=== PATIENT | female | born 1940 | race Caucasian/White ===

== ENCOUNTER 2016-10-20 22:01 | Emergency (ER) | payer MEDICARE, BC ==
[2016-10-20] MEDS ORDERED: Metoprolol Tartrate 50 MG Tab PO ONE (23:03)
[2016-10-20] MEDS ORDERED: LORazepam 0.5 MG Tab PO ONE (23:03)
[2016-10-20] MEDS ORDERED: Acetaminophen 325 MG Tab PO ONE (23:03)
[2016-10-20 23:19] VITALS: BP 153/59
--- NOTE | 2016-10-20 23:31 | EDM.PDOC ---
ED HPI ENT - General Chief Complaint: ENT Problem Stated Complaint: RIGHT EAR HURTS Time Seen by Provider: 10/20/16 22:32 Source of Information: Reports: Patient, Family (spouse), RN notes reviewed - History of Present Illness INITIAL COMMENTS - FREE TEXT/NARRATIVE: 75-year-old female comes in with throbbing right ear discomfort. This started several hours ago. She checked her blood pressure at home was very high around 200 for systolic. She states that she can feel "pounding in her right ear". No nausea or vomiting with this. No visual disturbance. She does have history of hypertension on multiple meds for that. She does take those meds in the morning which would have been many hours ago. She has not been ill recently with nasal or sinus congestion. She denies sore throat fever chills or cough. - Related Data Allergies/ADRs: Allergies Allergy/AdvReac Type Severity Reaction Status Date / Time No Known Allergies Allergy Verified 07/28/14 22:03 Home Meds: Home Meds Fluticasone/Salmeterol [Advair 250-50] 1 puff INH BEDTIME 07/28/14 [History] Metoprolol Succinate [Toprol Xl] 100 mg PO DAILY 07/28/14 [History] Pravastatin [Pravachol] 80 mg PO DAILY 07/28/14 [History] Ramipril [Altace] 10 mg PO BID 07/28/14 [History] amLODIPine [Norvasc] 10 mg PO DAILY 07/28/14 [History] Hydrochlorothiazide 12.5 mg PO DAILY 10/20/16 [History] Omeprazole 20 mg PO DAILY 10/20/16 [History] metroNIDAZOLE [Flagyl] 500 mg PO Q12H 10/20/16 [History] Past Medical History - Past Health History Medical/Surgical History: Denies Medical/Surgical History HEENT History: Reports: Impaired vision Cardiovascular History: Reports: Arrhythmia, High cholesterol, Hypertension Respiratory History: Reports: Asthma Gastrointestinal History: Reports: Diverticulosis, GERD Genitourinary History: Reports: UTI, recurrent 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 Denies: Eye pain, Sinus problem, Throat pain, Vision change Respiratory: Denies: Shortness of Breath, Wheezing, Pleuritic Chest Pain Cardiovascular: Denies: Chest pain GI/Abdominal: Denies: Abdominal pain, Nausea, Vomiting Musculoskeletal: Denies: neck pain, shoulder pain, arm pain, back pain, joint pain Skin: Reports: no symptoms Neurological: Denies: Numbness, Tingling, Trouble Speaking, Difficulty Walking, Weakness, Change in Speech ED EXAM, ENT - Physical Exam Exam: See Below General Appearance: alert, no apparent distress Eye Exam: bilateral eye: EOMI, PERRL Ears: normal external exam, normal canal, normal TMs Nose: normal inspection Mouth/Throat: Normal inspection Head: atraumatic. No: scalp tenderness, facial ecchymosis, facial swelling, facial tenderness Neck: supple, full range of motion. No: lymphadenopathy (L), lymphadenopathy (R ) Respiratory/Chest: no respiratory distress, lungs clear, normal breath sounds Cardiovascular: regular rate, rhythm GI/Abdominal: soft, non tender Back: normal inspection Extremities: normal inspection. No: pedal edema, leg pain Neurological: alert, oriented, no motor/sensory deficits, other (finger to nose testing normal) Course - Vital Signs Last Recorded V/S: Last Vital Signs Temp 97.7 F 10/20/16 22:23 Pulse 63 10/20/16 23:17 Resp 18 10/20/16 22:23 BP 153/59 H 10/20/16 23:17 Pulse Ox 99 10/20/16 22:23 - Orders/Labs/Meds Meds: Medications Discontinued Medications Generic Name Dose Route Start Last Admin Trade Name Ramiro PRN Reason Stop Dose Admin Acetaminophen 975 mg 10/20/16 23:03 10/20/16 23:18 Tylenol PO 10/20/16 23:04 975 mg NOW ONE Administration Lorazepam 0.5 mg 10/20/16 23:03 10/20/16 23:17 Ativan PO 10/20/16 23:04 0.5 mg ONETIME ONE Administration Metoprolol Tartrate 50 mg 10/20/16 23:03 10/20/16 23:17 Lopressor PO 10/20/16 23:04 50 mg ONETIME ONE Administration - Re-Assessments/Exams Free Text/Narrative Re-Assessment/Exam: 10/21/16 04:55 we gave metoprolol 50 mg by mouth, Tylenol 975 by mouth, Ativan 0.5 mg by mouth. With that her blood pressure did come down. She is feeling better at time of discharge. her right auditory canal was cleared, TM was normal. He has not had ear infection at this time. I did discuss option of head CT with patient and her this evening. With her blood pressure and symptoms improving there does not appear to urgent need for that at this time. That can always be done at a later date if indicated. Discharge instructions as documented. Departure - Departure Time of Disposition: 23:28 Disposition: Home, Self-Care 01 Condition: fair Clinical Impression: Hypertension Qualifiers: Hypertension type: essential hypertension Qualified Code(s): I10 - Essential ( primary) hypertension Instructions: Hypertension, [id number] Referrals: Erich Wright MD [Primary Care Provider] - Forms: ED Department Discharge Additional Instructions: continue current medications, rest, you have been given Tylenol, an extra 50 mg metoprolol and also Ativan or lorazepam 0.5 mg this evening to help your blood pressure, R ear discomfort and to help you rest and relax. if you have any home blood pressure monitor take that once or twice a day to check a number of readings over the next several days to see what your blood pressure is running on average, call or see Dr. Wright as needed, return to ED as needed
== END 2016-10-20 23:40 | disposition home or self-care (01) ==
LOC: JD.ED 22:01
DX: I10 Essential (primary) hypertension (principal); E78.00 Pure hypercholesterolemia, unspecified; J45.909 Unspecified asthma, uncomplicated; K21.9 Gastro-esophageal reflux disease without esophagitis; Z98.890 Other specified postprocedural states; Z90.710 Acquired absence of both cervix and uterus; Z79.899 Other long term (current) drug therapy
CPT/HCPCS: 99283; A9270

== ENCOUNTER 2017-06-12 16:36 | Emergency (ER) | payer MEDICARE, BC ==
[2017-06-12 16:43] VITALS: BP 166/70
--- NOTE | 2017-06-12 17:03 | EDM.PDOC ---
ED HPI GENERAL MEDICAL PROBLEM - General Chief Complaint: Chest Pain Stated Complaint: CHEST PAIN Time Seen by Provider: 06/12/17 17:01 Source of Information: Reports: Patient - History of Present Illness INITIAL COMMENTS - FREE TEXT/NARRATIVE: Patient is here today for evaluation for right upper chest pain. She states that she has had this intermittently over the past week or so. She states that when it occurs it lasts just a few seconds to a few minutes. She denies any shortness of breath or nausea when this occurs. Patient has no history of heart disease. She had a normal stress test in August 2015. She does have a known heart murmur. She does have a history of heartburn/reflux and is on omeprazole daily for this. She states that she has been belching more recently but hasn't really had any heartburn or reflux. She denies any nausea or vomiting. Patient states she has not been any more physical active recently than she usually is. She has not lifted anything heavy or done any unusual twisting motions. Patient denies any current pain. 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 (see below) Other Treatments CAPTAIN WAITER: asa 81 mg last evening Right Chest Pain Score (Numeric/FACES): 5 - Related Data Allergies Allergy/AdvReac Type Severity Reaction Status Date / Time No Known Allergies Allergy Verified 07/28/14 22:03 Home Meds: Home Meds Fluticasone/Salmeterol [Advair 250-50] 1 puff INH BEDTIME 07/28/14 [History] Metoprolol Succinate [Toprol Xl] 100 mg PO DAILY 07/28/14 [History] Pravastatin [Pravachol] 80 mg PO DAILY 07/28/14 [History] Ramipril [Altace] 10 mg PO DAILY 07/28/14 [History] amLODIPine [Norvasc] 10 mg PO DAILY 07/28/14 [History] Hydrochlorothiazide 12.5 mg PO DAILY 10/20/16 [History] Omeprazole 20 mg PO DAILY 10/20/16 [History] Aspirin [Halfprin] 81 mg PO DAILY 06/12/17 [History] Past Medical History - Past Health History Medical/Surgical History: Denies Medical/Surgical History HEENT History: Reports: Impaired Vision Cardiovascular History: Reports: Arrhythmia, High Cholesterol, Hypertension Respiratory History: Reports: Asthma Gastrointestinal History: Reports: Diverticulosis, GERD Genitourinary History: Reports: UTI, Recurrent 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 Denies: Blood Pressure Problem, Dyspnea on Exertion, Edema, Lightheadedness, Syncope Endocrine: Reports: No Symptoms GI/Abdominal: Denies: Abdominal Pain, Black Stool, Bloody Stool, Constipation, Diarrhea, Decreased Appetite, Nausea, Vomiting : Reports: No Symptoms Musculoskeletal: Reports: No Symptoms Skin: Reports: No Symptoms Neurological: Reports: No Symptoms ED EXAM, GENERAL - Physical Exam Exam: See Below Exam Limited By: No Limitations General Appearance: Alert, WD/WN, No Apparent Distress Nose: Normal Inspection, Normal Mucosa Throat/Mouth: Normal Inspection, Normal Lips, Normal Oropharynx Head: Atraumatic, Normocephalic Neck: Normal Inspection Respiratory/Chest: No Respiratory Distress, Lungs Clear, Normal Breath Sounds, No Accessory Muscle Use Cardiovascular: Normal Peripheral Pulses, Regular Rate, Rhythm, Systolic Murmur (II/) GI/Abdominal: Normal Bowel Sounds, Soft, Non-Tender Neurological: Alert, Oriented Psychiatric: Normal Affect, Normal Mood Skin Exam: Warm, Dry, Intact EKG INTERPRETATION EKG Date: 06/12/17 Time: 16:48 Rhythm: NSR Rate (Beats/Min): 64 Comparison: No Change EKG Interpretation Comments: EKG reviewed with Dr Jensen. Demonstrates LBBB, similar to previous EKGs last one 09/26/2014. Course - Vital Signs Last Recorded V/S: Last Vital Signs Temp 97.3 F 06/12/17 16:40 Pulse 75 06/12/17 16:40 Resp 20 06/12/17 16:40 BP 166/70 H 06/12/17 16:40 Pulse Ox 98 06/12/17 16:40 - Orders/Labs/Meds Labs: Laboratory Tests 06/12/17 06/12/17 Range/Units 17:12 17:12 WBC 7.93 (3.98-10.04) K/mm3 RBC 4.23 (3.98-5.22) M/mm3 Hgb 13.1 (11.2-15.7) gm/L Hct 39.3 (34.1-44.9) % MCV 92.9 (79.4-94.8) fl MCH 31.0 (25.6-32.2) pg MCHC 33.3 (32.2-35.5) g/dl RDW Std Deviation 42.9 (36.4-46.3) fL Plt Count 231 (182-369) K/mm3 MPV 10.0 (9.4-12.3) fl Neutrophils % (Manual) 60 (40-60) % Band Neutrophils % 0 (0-10) % Lymphocytes % (Manual) 35 (20-40) % Atypical Lymphs % 0 % Monocytes % (Manual) 2 (2-10) % Eosinophils % (Manual) 1 (0.7-5.8) % Basophils % (Manual) 2 H (0.1-1.2) Platelet Estimate Adequate RBC Morph Comment Normal Sodium 142 (136-145) mEq/L Potassium 4.0 (3.5-5.1) mEq/L Chloride 103 (98-107) mEq/L Carbon Dioxide 30 (21-32) mEq/L Anion Gap 13.0 (5-15) BUN 25 H (7-18) mg/dL Creatinine 1.0 (0.55-1.02) mg/dL Est Cr Clr Drug Dosing 38.44 mL/min Estimated GFR (MDRD) 54 (>60) mL/min BUN/Creatinine Ratio 25.0 H (14-18) Glucose 96 (83-115) mg/dL Calcium 10.2 H (8.5-10.1) mg/dL Total Bilirubin 0.3 (0.2-1.0) mg/dL AST 21 (15-37) U/L ALT 27 (14-59) U/L Alkaline Phosphatase 64 (46-116) U/L Troponin I < 0.017 (0.00-0.056) ng/mL C-Reactive Protein < 0.2 (<1.0) mg/dL Total Protein 7.4 (6.4-8.2) g/dl Albumin 3.9 (3.4-5.0) g/dl Globulin 3.5 gm/dL Albumin/Globulin Ratio 1.1 (1-2) Meds: Medications Discontinued Medications Generic Name Dose Route Start Last Admin Trade Name Ramiro PRN Reason Stop Dose Admin Ketorolac Tromethamine 60 mg 06/12/17 17:41 06/12/17 17:48 Toradol IM 06/12/17 17:42 60 mg ONETIME ONE Administration - Re-Assessments/Exams Free Text/Narrative Re-Assessment/Exam: Lab work is normal, troponin is negative. EKG is same as previous. Chest pain is less likely musculoskeletal especially since pain can be reproduced with pressure. Patient had significant improvement in pain with Toradol injection. Discussed treatment of pain with NSAIDs, recommend she take these with food if needed. She could also try something like topical Biofreeze as this might help as well. Patient is to follow-up with her PCP next week or certainly return to ER if needed. 06/12/17 19:15 Departure - Departure Time of Disposition: 18:40 Disposition: Home, Self-Care 01 Condition: Good Clinical Impression: Musculoskeletal chest pain, Non-cardiac chest pain Instructions: Nonspecific Chest Pain Referrals: Erich Wright MD [Primary Care Provider] - Forms: ED Department Discharge Additional Instructions: Rest, activity as tolerated You may try Tylenol as needed for the pain, ibuprofen if needed but take with food as this may upset your stomach. You also could try topical such as Biofreeze. Follow-up with PCP next week or certainly return to ER if needed.
[2017-06-12] MEDS ORDERED: Ketorolac 60 MG/2 ML SDV IM ONE (17:41)
== END 2017-06-12 18:18 | disposition home or self-care (01) ==
LOC: JD.ED 16:36 → SUPCPDRO 16:36 → JD.ED 18:18
DX: R07.89 Other chest pain (principal); I10 Essential (primary) hypertension; Z79.899 Other long term (current) drug therapy; Z79.82 Long term (current) use of aspirin
CPT/HCPCS: 36415; 80053; 84484; 85025; 86140; 96372; 99284; J1885

== ENCOUNTER 2018-05-13 19:34 | Emergency (ER) | payer MEDICARE, BC ==
[2018-05-13 19:51] VITALS: BP 158/83
[2018-05-13] MEDS ORDERED: Sodium Chloride 0.9% 1,000 ML IV ONE (20:01)
[2018-05-13] MEDS ORDERED: Ondansetron 4 MG/2 ML SDV IVPUSH ONE (20:01)
[2018-05-13] MEDS ORDERED: Dicyclomine 20 MG/2 ML SDV IM ONE (20:05)
--- NOTE | 2018-05-13 20:10 | EDM.PDOC ---
ED HPI GENERAL MEDICAL PROBLEM - General Chief Complaint: General Stated Complaint: WEAK DIARRHEA ARM AND LEG PAIN Time Seen by Provider: 05/13/18 19:53 - History of Present Illness INITIAL COMMENTS - FREE TEXT/NARRATIVE: Patient is 77-year-old female, accompanied by her presented related to the emergency department for an evaluation of multiple episode of loose stools and vomiting after drinking vegetable soup few hours ago. She stated that she has been having at least 4-5 loose liquid stool without any blood and one or 2 episode of vomitus since drank that soup. She denies any chest pain, shortness of breath, abdominal pain associated with diarrhea and vomiting episodes. However she complains of cramping in her legs and arms. She denies any fever or chills, or back pain. She denies any recent traveling or sick contacts. Denies any other concern at this time. Of note, her at bedside also stated that he had similar soup which he also had 2-3 loose bowel movements But no episode of vomiting. 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 (see below) Other Treatments BALANCE WHEEL FACER: had baby aspirin this evening about 1600 - Related Data Allergies Allergy/AdvReac Type Severity Reaction Status Date / Time No Known Allergies Allergy Verified 07/28/14 22:03 Home Meds: Home Meds Fluticasone/Salmeterol [Advair 250-50] 1 puff INH BEDTIME 07/28/14 [History] Metoprolol Succinate [Toprol Xl] 100 mg PO DAILY 07/28/14 [History] Pravastatin [Pravachol] 80 mg PO DAILY 07/28/14 [History] Ramipril [Altace] 10 mg PO DAILY 07/28/14 [History] amLODIPine [Norvasc] 10 mg PO DAILY 07/28/14 [History] Omeprazole 20 mg PO DAILY 10/20/16 [History] hydroCHLOROthiazide [Hydrochlorothiazide] 12.5 mg PO DAILY 10/20/16 [History] Aspirin [Halfprin] 81 mg PO DAILY 06/12/17 [History] Dicyclomine [Bentyl] 20 mg PO TID 5 Days #15 tab 05/13/18 [Rx] Ondansetron [Zofran ODT] 4 mg PO Q8H PRN #15 tab.dis 05/13/18 [Rx] Past Medical History - Past Health History Medical/Surgical History: Denies Medical/Surgical History HEENT History: Reports: Impaired Vision Cardiovascular History: Reports: Arrhythmia, High Cholesterol, Hypertension Respiratory History: Reports: Asthma Gastrointestinal History: Reports: Diverticulosis, GERD Genitourinary History: Reports: UTI, Recurrent 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 ED EXAM, GENERAL - Physical Exam Exam: See Below Exam Limited By: No Limitations General Appearance: Alert, WD/WN, No Apparent Distress Eye Exam: Bilateral Eye: EOMI, Normal Inspection, PERRL Throat/Mouth: Normal Inspection, Normal Lips, Normal Oropharynx, Normal Voice, No Airway Compromise Head: Atraumatic, Normocephalic Neck: Normal Inspection, Supple, Full Range of Motion Respiratory/Chest: No Respiratory Distress, Lungs Clear, Normal Breath Sounds Cardiovascular: Normal Peripheral Pulses, Regular Rate, Rhythm, No Edema GI/Abdominal: Normal Bowel Sounds, Soft, Non-Tender, No Organomegaly, No Distention (Female) Exam: Deferred Rectal (Female) Exam: Deferred Back Exam: Normal Inspection, Full Range of Motion, NT Extremities: Normal Inspection, Normal Range of Motion, Non-Tender, Normal Capillary Refill, No Pedal Edema Neurological: Alert, Oriented, No Motor/Sensory Deficits Psychiatric: Normal Affect, Normal Mood Skin Exam: Warm, Dry, Intact, Normal Color, No Rash EKG INTERPRETATION EKG Date: 05/13/18 Time: 19:53 Rhythm: NSR [place]: Normal P-Wave: Present QRS: LBBB ST-T: Normal QT: Normal Course - Vital Signs Last Recorded V/S: Last Vital Signs Temp 36.6 C 05/13/18 19:49 Pulse 70 05/13/18 19:49 Resp 20 05/13/18 19:49 BP 158/83 H 05/13/18 19:49 Pulse Ox - Orders/Labs/Meds Orders: Active Orders 24 hr Category Date Time Status EKG 12 Lead [EKG Documentation Completion] [RC] STAT Care 05/13/18 19:50 Active Labs: Laboratory Tests 05/13/18 05/13/18 05/13/18 Range/Units 20:15 20:15 20:20 WBC 9.19 (3.98-10.04) K/mm3 RBC 4.45 (3.98-5.22) M/mm3 Hgb 13.5 (11.2-15.7) gm/L Hct 41.5 (34.1-44.9) % MCV 93.3 (79.4-94.8) fl MCH 30.3 (25.6-32.2) pg MCHC 32.5 (32.2-35.5) g/dl RDW Std Deviation 42.9 (36.4-46.3) fL Plt Count 235 (182-369) K/mm3 MPV 9.9 (9.4-12.3) fl Neut % (Auto) 70.0 (34.0-71.1) % Lymph % (Auto) 21.0 (19.3-51.7) % [place] % (Auto) 6.9 (4.7-12.5) % Eos % (Auto) 1.8 (0.7-5.8) Baso % (Auto) 0.2 (0.1-1.2) % Neut # (Auto) 6.43 H (1.56-6.13) K/mm3 Lymph # (Auto) 1.93 (1.18-3.74) K/mm3 [place] # (Auto) 0.63 H (0.24-0.36) K/mm3 Eos # (Auto) 0.17 (0.04-0.36) K/mm3 Baso # (Auto) 0.02 (0.01-0.08) K/mm3 Sodium 137 (136-145) mEq/L Potassium 4.0 (3.5-5.1) mEq/L Chloride 101 (98-107) mEq/L Carbon Dioxide 29 (21-32) mEq/L Anion Gap 11.0 (5-15) BUN 18 (7-18) mg/dL Creatinine 1.3 H (0.55-1.02) mg/dL Est Cr Clr Drug Dosing 29.12 mL/min Estimated GFR (MDRD) 40 (>60) mL/min BUN/Creatinine Ratio 13.8 L (14-18) Glucose 165 H (83-115) mg/dL Calcium 8.9 (8.5-10.1) mg/dL Magnesium 1.8 (1.8-2.4) mg/dl Total Bilirubin 0.2 (0.2-1.0) mg/dL AST 19 (15-37) U/L ALT 28 (14-59) U/L Alkaline Phosphatase 71 (46-116) U/L Total Protein 7.4 (6.4-8.2) g/dl Albumin 3.8 (3.4-5.0) g/dl Globulin 3.6 gm/dL Albumin/Globulin Ratio 1.1 (1-2) Lipase 207 (73-393) U/L Urine Color Yellow (Yellow) Urine Appearance Clear (Clear) Urine pH 7.0 (5.0-8.0) Ur Specific [place] 1.020 (1.005-1.030) Urine Protein Negative (Negative) Urine Glucose (UA) Negative (Negative) Urine Ketones Negative (Negative) Urine Occult Blood Negative (Negative) Urine Nitrite Negative (Negative) Urine Bilirubin Negative (Negative) Urine Urobilinogen 0.2 (0.2-1.0) Ur Leukocyte Esterase 1+ H (Negative) Urine RBC 0-5 (0-5) /hpf Urine WBC 10-20 H (0-5) /hpf Ur Epithelial Cells 40-50 H (0-5) /hpf Urine Bacteria Rare (FEW) /hpf Urine Mucus Not seen (FEW) /hpf Meds: Medications Discontinued Medications Generic Name Dose Route Start Last Admin Trade Name Freq PRN Reason Stop Dose Admin Dicyclomine HCl 20 mg 05/13/18 20:05 05/13/18 20:25 Bentyl IM 05/13/18 20:06 20 mg ONETIME ONE Administration Sodium Chloride 1,000 mls @ 999 mls/hr 05/13/18 20:01 05/13/18 20:12 Normal Saline IV 05/13/18 21:01 999 mls/hr ONETIME ONE Administration Promethazine HCl 12.5 mg/ 50.5 mls @ 100 mls/hr 05/13/18 21:14 05/13/18 21:21 Sodium Chloride IV 05/13/18 21:44 100 mls/hr ONETIME ONE Administration Ondansetron HCl 4 mg 05/13/18 20:01 05/13/18 20:12 Zofran IVPUSH 05/13/18 20:02 4 mg ONETIME ONE Administration - Re-Assessments/Exams Free Text/Narrative Re-Assessment/Exam: 05/13/18 21:55 At this time, patient reevaluated at bedside. Symptoms improving and progressing as expected. Patient alert and awake, afebrile with normal vital signs. Tolerating PO, abdomen soft and nontender to palpation. Results were reviewed and discussed with patient and available family member at bedside. Questions were solicited and answered. No evidence of severe dehydration, sepsis, or other surgical process. Patient appropriate for discharge. Patient and family both agrees with the discharge plan. Warning signs reviewed. Strong return precautions given for worsening symptoms or any other alarming symptoms such as persistent abdominal pain, flank pain, vomiting, fever greater than 100.4F, hematuria, urinary frequency, urgency, dysuria, persistent low back pain. At the time of discharge patient was alert and oriented 4, was in no acute distress. Ambulated on her own accord, and moving all 4 extremities voluntarily. Patient has been recommended to follow up with their established and/or referral primary care provider as soon as possible for further follow-up ED visit. Patient was informed discharge medications and counseled regarding use of medications Departure - Departure Time of Disposition: 22:17 Disposition: Home, Self-Care 01 Condition: Good Clinical Impression: Nausea vomiting and diarrhea - Discharge Information *PRESCRIPTION DRUG MONITORING PROGRAM REVIEWED*: Not Applicable *COPY OF PRESCRIPTION DRUG MONITORING REPORT IN PATIENT MISHEL: Not Applicable Prescriptions: Dicyclomine [Bentyl] 20 mg PO TID 5 Days #15 tab Ondansetron [Zofran ODT] 4 mg PO Q8H PRN #15 tab.dis PRN Reason: Nausea/Vomiting Instructions: Nausea and Vomiting, Adult, Diarrhea, Adult, [id number] Referrals: Erich Wright MD [Primary Care Provider] - 3 Days (Please call your primary care provider to reevaluate your symptoms of today emergency visit) Forms: ED Department Discharge
[2018-05-13] MEDS ORDERED: Promethazine 12.5 MG in Sodium Chloride 0.9% 50 ML IV ONE (21:14)
== END 2018-05-13 22:33 | disposition home or self-care (01) ==
LOC: JD.ED 19:34
DX: R11.2 Nausea with vomiting, unspecified (principal); R19.7 Diarrhea, unspecified; E78.00 Pure hypercholesterolemia, unspecified; I10 Essential (primary) hypertension; J45.909 Unspecified asthma, uncomplicated; Z79.82 Long term (current) use of aspirin; Z79.899 Other long term (current) drug therapy
CPT/HCPCS: 36415; 80053; 81001; 83690; 83735; 85025; 93005; 96361; 96365; 96372; 96375; 99285; J0500; J2405; J2550; J7040; J7050; 99284

== ENCOUNTER 2018-05-14 06:37 | Emergency (ER) | payer MEDICARE, BC ==
[2018-05-14 07:00] VITALS: BP 175/67
--- NOTE | 2018-05-14 07:34 | EDM.PDOC ---
ED HPI GENERAL MEDICAL PROBLEM - General Chief Complaint: Abdominal Pain Stated Complaint: BLOOD IN STOOL Time Seen by Provider: 05/14/18 06:54 Source of Information: Reports: Patient, Family (), Old Records (ED 2017), RN Notes Reviewed History Limitations: Reports: No Limitations - History of Present Illness INITIAL COMMENTS - FREE TEXT/NARRATIVE: Medical records indicate that the patient was seen in this ED last night, with a complaint of 2 episodes of vomiting and multiple episodes of loose stools without blood for a few hours at that time. She also complained of cramping in her legs and arms. Workup included a CBC, CMP, magnesium level, lipase level, and urinalysis. Her workup was unremarkable. She was given IV fluid, Bentyl, promethazine, and Zofran. Her symptoms improved, and she was discharged home with prescriptions for Bentyl and Zofran. The patient now returns to the ED stating that he developed bloody diarrhea around midnight, and that she had abdominal cramps all night. No other new symptoms. No recent fever. She did not get to fill the prescriptions for Bentyl and Zofran. The patient's reported that he had had some loose bowel movements yesterday, as well, but the patient does not know of any other similarly ill close contacts. No known bad or spoiled food. No recent antibiotics. No recent travel. The patient's PCP is Dr. Wright. Abdominal Pain Score (Numeric/FACES): 3 - Related Data Allergies Allergy/AdvReac Type Severity Reaction Status Date / Time No Known Allergies Allergy Verified 05/14/18 06:55 Home Meds: Home Meds Fluticasone/Salmeterol [Advair 250-50] 1 puff INH BEDTIME 07/28/14 [History] Metoprolol Succinate [Toprol Xl] 100 mg PO DAILY 07/28/14 [History] Pravastatin [Pravachol] 80 mg PO DAILY 07/28/14 [History] Ramipril [Altace] 10 mg PO DAILY 07/28/14 [History] amLODIPine [Norvasc] 10 mg PO DAILY 07/28/14 [History] Omeprazole 20 mg PO DAILY 10/20/16 [History] hydroCHLOROthiazide [Hydrochlorothiazide] 12.5 mg PO DAILY 10/20/16 [History] Aspirin [Halfprin] 81 mg PO DAILY 06/12/17 [History] Dicyclomine [Bentyl] 20 mg PO TID 5 Days #15 tab 05/13/18 [Rx] Ondansetron [Zofran ODT] 4 mg PO Q8H PRN #15 tab.dis 05/13/18 [Rx] metroNIDAZOLE [Flagyl] 1 tab PO Q8H #30 tab 05/14/18 [Rx] Past Medical History HEENT History: Reports: Impaired Vision Cardiovascular History: Reports: Arrhythmia, High Cholesterol, Hypertension Respiratory History: Reports: Asthma (suspected, not confirmed) Gastrointestinal History: Reports: Diverticulosis, GERD - Past Surgical History HEENT Surgical History: Reports: Tonsillectomy GI Surgical History: Reports: Appendectomy, Colonoscopy Female Surgical History: Reports: D&C (x 4 or 5), Hysterectomy, Salpingo- Oophorectomy Social & Family History - Family History Family Medical History: Noncontributory - Tobacco Use Smoking Status *Q: Never Smoker - Caffeine Use Caffeine Use: Reports: Coffee - Alcohol Use Alcohol Use History: Yes Alcohol Use Frequency: Rarely - Recreational Drug Use Recreational Drug Use: No - Living Situation & Occupation Living situation: Reports: , with Spouse Occupation: Retired ED ROS GENERAL - Review of Systems Review Of Systems: ROS reveals no pertinent complaints other than HPI. ED EXAM, GI/ABD - Physical Exam Exam: See Below Exam Limited By: No Limitations General Appearance: Alert, WD/WN, No Apparent Distress Eyes: Bilateral: Normal Appearance, EOMI Ears: Normal External Exam, Hearing Grossly Normal Nose: Normal Inspection Throat/Mouth: Normal Inspection, Normal Lips, Normal Voice, No Airway Compromise Head: Atraumatic, Normocephalic Neck: Normal Inspection, Full Range of Motion Respiratory/Chest: No Respiratory Distress, Lungs Clear, Normal Breath Sounds, No Accessory Muscle Use Cardiovascular: Normal Peripheral Pulses, Regular Rate, Rhythm, No Gallop, No JVD, No Murmur, No Rub GI/Abdominal Exam: Normal Bowel Sounds, Soft, Non-Tender, No Organomegaly, No Distention, No Abnormal Bruit, No Mass, Pelvis Stable (Female) Exam: Deferred Rectal (Female) Exam: Normal Rectal Tone, Bloody Stool (thin red), Heme + Stool , Hemorrhoids (external, non-thrombosed, non-tender) Back Exam: Normal Inspection, Full Range of Motion, NT Extremities: Normal Inspection, Normal Range of Motion, No Pedal Edema, Normal Capillary Refill Neurological: Alert, Oriented, Normal Cognition, No Motor/Sensory Deficits Psychiatric: Normal Affect Skin Exam: Warm, Dry, Intact, Normal Color, No Rash Course - Vital Signs Last Recorded V/S: Last Vital Signs Temp 36.9 C 05/14/18 06:55 Pulse 81 05/14/18 06:55 Resp 18 05/14/18 06:55 BP 175/67 H 05/14/18 06:55 Pulse Ox 100 05/14/18 06:55 - Orders/Labs/Meds Orders: Active Orders 24 hr Category Date Time Status CULTURE STOOL + SHIGATOX [RM] Stat Lab 05/14/18 07:39 Received NOROVIRUS, RT-PCR Stat Lab 05/14/18 07:29 Ordered Labs: Laboratory Tests 05/14/18 Range/Units 07:29 C.difficile [id number] Presumptive negative C. difficile Tox (PCR) Positive H - Re-Assessments/Exams Free Text/Narrative Re-Assessment/Exam: 05/14/18 07:30 The only thing that has changed since last evening is that the patient has some blood in her diarrhea. Her physical exam, including her abdominal exam, is grossly benign. She is heme positive on rectal exam, however, the blood is relatively thin. I don't see an indication to repeat the extensive workup that she had last night. The only thing that I would add is to send stool studies to see if an organism returns that would require treatment. The patient has not yet filled her prescriptions for Bentyl and Zofran, but can do so at 9:00 this morning. The patient is satisfied with this approach. I have therefore ordered a number of stool studies. The patient may go home, and we can contact her if something significant results. 05/14/18 09:30 Notified by Di CABEZAS that the patient's stool C. difficile toxin by PCR has returned positive. Current guidelines have changed. Previously, initial treatment was a 10-day course of Flagyl, however, current guidelines now recommend a 10-day course of oral vancomycin. I contacted the patient by telephone at 09:21. 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 I have sent a prescription for vancomycin 125 mg po Q 6h #40. I explained to the patient the necessity for her to complete the 10-day course, even if her diarrhea resolves, and have her follow-up with her PCP in 10 days if her diarrhea does not resolve. 05/14/18 11:49 Notified that the patient's insurance requires a $500 co-pay for the oral vancomycin, and the patient cannot afford it. We called [facility] to see if they carry fidaxomicin, an alternate agent with equivalent efficacy, but they do not. The patient informed the nurse that she would not be able to fill the prescription. It is unclear what prompted the change in guidelines; previously, metronidazole and oral vancomycin were equally efficacious, but vancomycin was much more expensive, therefore the recommendations were for a 10-day course of metronidazole, and if ineffective in eradicating the C. difficile, then a second 10-day course of metronidazole, and, if still ineffective in eradicating the C. difficile, then a 10-day course of oral vancomycin. Since oral vancomycin is still exorbitantly expensive, it would appear that the reason for the change in guidelines is due to efficacy - that C. difficile resistance to metronidazole may be developing. While it is unethical to prescribe an ineffective agent based on cost, I would prefer to see the patient on metronidazole, even if less efficacious, than nothing at all. I have therefore sent in a Rx for metronidazole 500 mg, 1 tab po Q8h #30. Departure - Departure Time of Disposition: 07:32 Disposition: Home, Self-Care 01 Condition: Fair Clinical Impression: Gastroenteritis, Lower GI bleed - Discharge Information *PRESCRIPTION DRUG MONITORING PROGRAM REVIEWED*: Not Applicable *COPY OF PRESCRIPTION DRUG MONITORING REPORT IN PATIENT MISHEL: Not Applicable Prescriptions: metroNIDAZOLE [Flagyl] 1 tab PO Q8H #30 tab Instructions: Viral Gastroenteritis, Adult, [id number], Lower Gastrointestinal Bleeding Referrals: Erich Wright MD [Primary Care Provider] - Forms: ED Department Discharge Additional Instructions: You were seen in the emergency room for vomiting, diarrhea, and, since midnight , blood in your diarrhea. Based on your history and physical examination, the only thing that was recommended on today's visit was to send stool studies. You will be notified if an organism is found that requires treatment, such as an antibiotic. Fill your prescriptions for Bentyl and Zofran at the [facility] pharmacy between 9:00 am and noon today. Stay adequately hydrated. Follow-up with your PCP, Dr. Wright, this week. If any other problems, please do not hesitate to return to the ER. - My Orders Last 24 Hours: My Active Orders 05/14/18 07:29 NOROVIRUS, RT-PCR Stat 05/14/18 07:39 CULTURE STOOL + SHIGATOX [RM] Stat - Assessment/Plan Last 24 Hours: My Active Orders 05/14/18 07:29 NOROVIRUS, RT-PCR Stat 05/14/18 07:39 CULTURE STOOL + SHIGATOX [RM] Stat
== END 2018-05-14 07:50 | disposition home or self-care (01) ==
LOC: JD.ED 06:37
DX: K52.9 Noninfective gastroenteritis and colitis, unspecified (principal); K92.2 Gastrointestinal hemorrhage, unspecified; I10 Essential (primary) hypertension; Z79.899 Other long term (current) drug therapy
CPT/HCPCS: 87046; 87425; 87427; 87493; 87798; 89055; 99284

== ENCOUNTER 2018-09-14 16:50 | Emergency (ER) | payer MEDICARE, BC ==
[2018-09-14] MEDS ORDERED: cloNIDine 0.1 MG Tab ONE (18:00)
[2018-09-14] MEDS ORDERED: Acetaminophen 325 MG Tab ONE (18:54)
[2018-09-14] MEDS ORDERED: Labetalol 100 MG/20 ML MDV ONE (18:54)
[2018-09-14 20:09] VITALS: BP 166/69
--- NOTE | 2018-09-15 08:17 | EDM.PDOC ---
ED HPI GENERAL MEDICAL PROBLEM - General Chief Complaint: Chest Pain Stated Complaint: CHEST PAIN Time Seen by Provider: 09/14/18 16:50 Source of Information: Reports: Patient, RN Notes Reviewed - History of Present Illness INITIAL COMMENTS - FREE TEXT/NARRATIVE: 77-year-old female comes in with brief episodes of chest discomfort yesterday and today associated with nonspecific dizziness and hypertension. Has been checking her blood pressure at home and this evening especially blood pressure readings have been much more elevated than usual. She has not been short of breath. No nausea vomiting or diaphoresis. Left Chest Pain Score (Numeric/FACES): 3 - Related Data Allergies Allergy/AdvReac Type Severity Reaction Status Date / Time No Known Allergies Allergy Verified 09/14/18 20:06 Home Meds: Home Meds Fluticasone/Salmeterol [Advair 250-50] 1 puff INH BEDTIME 07/28/14 [History] Metoprolol Succinate [Toprol Xl] 100 mg PO DAILY 07/28/14 [History] Pravastatin [Pravachol] 80 mg PO DAILY 07/28/14 [History] Ramipril [Altace] 10 mg PO DAILY 07/28/14 [History] amLODIPine [Norvasc] 5 mg PO DAILY 07/28/14 [History] Omeprazole 20 mg PO DAILY 10/20/16 [History] hydroCHLOROthiazide [Hydrochlorothiazide] 12.5 mg PO DAILY 10/20/16 [History] Aspirin [Halfprin] 81 mg PO DAILY 06/12/17 [History] Past Medical History - Past Health History Medical/Surgical History: Denies Medical/Surgical History HEENT History: Reports: Impaired Vision Cardiovascular History: Reports: Arrhythmia, High Cholesterol, Hypertension Respiratory History: Reports: Asthma Gastrointestinal History: Reports: Diverticulosis, GERD Genitourinary History: Reports: UTI, Recurrent 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 - Past Surgical History HEENT Surgical History: Reports: Tonsillectomy GI Surgical History: Reports: Appendectomy, Colonoscopy Female Surgical History: Reports: D&C, Hysterectomy, Salpingo-Oophorectomy Social & Family History - Family History Family Medical History: Noncontributory - Caffeine Use Caffeine Use: Reports: Coffee - Living Situation & Occupation Living situation: Reports: , with Spouse Occupation: Retired ED ROS GENERAL - Review of Systems Review Of Systems: See Below Constitutional: Denies: Fever, Chills, Diaphoresis HEENT: Denies: Throat Pain Respiratory: Denies: Shortness of Breath, Wheezing, Cough Cardiovascular: Reports: Chest Pain (brief episodes of twinges ant. chest yesterday and today) GI/Abdominal: Denies: Abdominal Pain, Nausea, Vomiting Musculoskeletal: Reports: No Symptoms. Denies: Neck Pain, Shoulder Pain, Arm Pain, Back Pain Skin: Reports: No Symptoms Neurological: Reports: Dizziness ED EXAM, GENERAL - Physical Exam Exam: See Below General Appearance: Alert, No Apparent Distress Throat/Mouth: Normal Inspection, Normal Oropharynx Head: Atraumatic. No: Facial Swelling Neck: Supple, Full Range of Motion Respiratory/Chest: No Respiratory Distress, Lungs Clear, Normal Breath Sounds Cardiovascular: Regular Rate, Rhythm GI/Abdominal: Soft, Non-Tender Back Exam: No: CVA Tenderness (L), CVA Tenderness (R) Extremities: Normal Inspection, Normal Range of Motion. No: Pedal Edema, Leg Pain, Increased Warmth, Redness Neurological: Alert, Oriented, No Motor/Sensory Deficits Skin Exam: Warm, Dry, Normal Color EKG INTERPRETATION EKG Date: 09/14/18 Rhythm: NSR [place]: Normal P-Wave: Present QRS: LBBB Course - Vital Signs Last Recorded V/S: Last Vital Signs Temp 97 F 09/14/18 19:35 Pulse 70 09/14/18 19:35 Resp 16 09/14/18 19:35 BP 166/69 H 09/14/18 19:35 Pulse Ox 98 09/14/18 19:35 - Orders/Labs/Meds Orders: Active Orders 24 hr Category Date Time Status Chest 1V Frontal [CR] Routine Exams 09/14/18 17:20 Taken Labs: Laboratory Tests 09/14/18 09/14/18 Range/Units 17:20 17:20 WBC 7.38 (3.98-10.04) K/mm3 RBC 4.53 (3.98-5.22) M/mm3 Hgb 14.0 (11.2-15.7) gm/L Hct 41.5 (34.1-44.9) % MCV 91.6 (79.4-94.8) fl MCH 30.9 (25.6-32.2) pg MCHC 33.7 (32.2-35.5) g/dl RDW Std Deviation 42.1 (36.4-46.3) fL Plt Count 256 (182-369) K/mm3 MPV 10.2 (9.4-12.3) fl Neutrophils % (Manual) 62 H (40-60) % Lymphocytes % (Manual) 31 (20-40) % Monocytes % (Manual) 5 (2-10) % Eosinophils % (Manual) 2 (0.7-5.8) % Platelet Estimate Adequate RBC Morph Comment Normal Sodium 142 (136-145) mEq/L Potassium 3.7 (3.5-5.1) mEq/L Chloride 103 (98-107) mEq/L Carbon Dioxide 29 (21-32) mEq/L Anion Gap 13.7 (5-15) BUN 17 (7-18) mg/dL Creatinine 0.9 (0.55-1.02) mg/dL Est Cr Clr Drug Dosing 42.06 mL/min Estimated GFR (MDRD) > 60 (>60) mL/min BUN/Creatinine Ratio 18.9 H (14-18) Glucose 101 (83-115) mg/dL Calcium 9.6 (8.5-10.1) mg/dL Total Bilirubin 0.3 (0.2-1.0) mg/dL AST 20 (15-37) U/L ALT 33 (14-59) U/L Alkaline Phosphatase 77 (46-116) U/L Troponin I < 0.017 (0.00-0.056) ng/mL Total Protein 7.8 (6.4-8.2) g/dl Albumin 4.1 (3.4-5.0) g/dl Globulin 3.7 gm/dL Albumin/Globulin Ratio 1.1 (1-2) Meds: Medications Discontinued Medications Generic Name Dose Route Start Last Admin Trade Name Freq PRN Reason Stop Dose Admin Acetaminophen Confirm 09/14/18 18:54 Tylenol Administered 09/14/18 18:55 Dose 650 mg .ROUTE .STK-MED ONE Clonidine HCl Confirm 09/14/18 18:00 Catapres Administered 09/14/18 18:01 Dose 0.1 mg .ROUTE .STK-MED ONE Labetalol HCl Confirm 09/14/18 18:54 Normodyne Administered 09/14/18 18:55 Dose 100 mg .ROUTE .STK-MED ONE - Re-Assessments/Exams Free Text/Narrative Re-Assessment/Exam: 09/15/18 08:16 labs including troponin are good, CXR nl, sats are good, BP quite high, did start trending down, had been given clonidine 0.1 mg by mouth, then started going back up toward 180-190 systolic. At that point given labetalol 20 IV which brought blood pressure down into the 150 range. No further discomfort while here in the ED. Discharge instructions as documented. Departure - Departure Time of Disposition: 19:10 Disposition: Home, Self-Care 01 Condition: Fair Clinical Impression: Atypical chest pain Hypertension Qualifiers: Hypertension type: essential hypertension Qualified Code(s): I10 - Essential ( primary) hypertension Forms: ED Department Discharge - My Orders Last 24 Hours: My Active Orders 09/14/18 17:20 Chest 1V Frontal [CR] Routine - Assessment/Plan Last 24 Hours: My Active Orders 09/14/18 17:20 Chest 1V Frontal [CR] Routine
--- NOTE | 2018-09-15 10:19 | CR ---
Chest: Portable view of the chest was obtained. Comparison: Prior chest x-ray of 07/05/18. Heart size appears within normal limits for portable technique. Mild tortuosity of the thoracic aorta is seen. Lungs are clear with no acute parenchymal change. Bony structures are grossly intact. Impression: 1. Nothing acute is appreciated on portable chest x-ray. Diagnostic code #1
== END 2018-09-14 19:35 | disposition home or self-care (01) ==
LOC: JD.ED 16:50
DX: R07.89 Other chest pain (principal); E78.00 Pure hypercholesterolemia, unspecified; I10 Essential (primary) hypertension; Z79.899 Other long term (current) drug therapy; Z79.82 Long term (current) use of aspirin
CPT/HCPCS: 36415; 71045; 71045-26; 80053; 84484; 85007; 85027; 96374; 99285-25

== ENCOUNTER 2018-09-16 18:15 | Emergency (ER) | payer MEDICARE, BC ==
[2018-09-16] MEDS ORDERED: hydrALAZINE 20 MG/ML SDV IVPUSH ONE (18:51)
--- NOTE | 2018-09-16 19:00 | EDM.PDOC ---
ED HPI GENERAL MEDICAL PROBLEM - General Chief Complaint: Neurological Problem Stated Complaint: HIGH BP Time Seen by Provider: 09/16/18 18:28 Source of Information: Reports: Patient, Old Records, RN Notes Reviewed History Limitations: Reports: No Limitations - History of Present Illness INITIAL COMMENTS - FREE TEXT/NARRATIVE: Patient is a 77 year old female who presents to the ED for the evaluation of high BP. She was seen in this ED on Wednesday night by Dr. Boudreaux and he increased her amlodipine dose to 10mg daily. He did give her 20mg IV labetalol in the ED and that helped with her BP at that visit. She returned to clinic today for a follow up appointment, and she was feeling fine then. She states that she had a headache last night and she checked her BP and it was 204/117. When she re-checked this AM it was in the 170s systolically. She did end up taking 200mg ibuprofen for a headache this morning. She states that she is a patient of Dr. Sanchez. She reports that she feels as if she might be having increased stress in her life due to a new medical diagnosis that her has that has made her worried. She denies chest pain, shortness of breath, blurred/double vision, tinnitus, fever/chills, or abdominal upset. Headache Pain Score (Numeric/FACES): 5 - Related Data Allergies Allergy/AdvReac Type Severity Reaction Status Date / Time No Known Allergies Allergy Verified 09/14/18 20:06 Home Meds: Home Meds Fluticasone/Salmeterol [Advair 250-50] 1 puff INH BEDTIME 07/28/14 [History] Metoprolol Succinate [Toprol Xl] 100 mg PO DAILY 07/28/14 [History] Pravastatin [Pravachol] 80 mg PO DAILY 07/28/14 [History] Ramipril [Altace] 10 mg PO DAILY 07/28/14 [History] amLODIPine [Norvasc] 5 mg PO DAILY 07/28/14 [History] Omeprazole 20 mg PO DAILY 10/20/16 [History] hydroCHLOROthiazide [Hydrochlorothiazide] 12.5 mg PO DAILY 10/20/16 [History] Aspirin [Halfprin] 81 mg PO DAILY 06/12/17 [History] Past Medical History - Past Health History Medical/Surgical History: Denies Medical/Surgical History HEENT History: Reports: Impaired Vision Cardiovascular History: Reports: Arrhythmia, High Cholesterol, Hypertension Respiratory History: Reports: Asthma Gastrointestinal History: Reports: Diverticulosis, GERD Genitourinary History: Reports: UTI, Recurrent 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 - Past Surgical History HEENT Surgical History: Reports: Tonsillectomy GI Surgical History: Reports: Appendectomy, Colonoscopy Female Surgical History: Reports: D&C, Hysterectomy, Salpingo-Oophorectomy Social & Family History - Family History Family Medical History: Noncontributory - Tobacco Use Smoking Status *Q: Never Smoker Second Hand Smoke Exposure: No - Caffeine Use Caffeine Use: Reports: Coffee - Living Situation & Occupation Living situation: Reports: , with Spouse Occupation: Retired ED ROS GENERAL - Review of Systems Review Of Systems: See Below Constitutional: Denies: Fever, Chills, Weakness, Fatigue HEENT: Reports: No Symptoms Respiratory: Reports: No Symptoms Cardiovascular: Reports: Blood Pressure Problem. Denies: Chest Pain, Dyspnea on Exertion, Edema, Orthopnea Endocrine: Reports: No Symptoms GI/Abdominal: Reports: No Symptoms : Reports: No Symptoms Musculoskeletal: Reports: No Symptoms Skin: Reports: No Symptoms Neurological: Reports: Headache Psychiatric: Reports: No Symptoms Hematologic/Lymphatic: Reports: No Symptoms Immunologic: Reports: No Symptoms ED EXAM, GENERAL - Physical Exam Exam: See Below Exam Limited By: No Limitations General Appearance: Alert, WD/WN, No Apparent Distress Eye Exam: Bilateral Eye: EOMI, Normal Inspection, PERRL Ears: Normal External Exam Nose: Normal Inspection Throat/Mouth: Normal Inspection, Normal Oropharynx Head: Atraumatic, Normocephalic Neck: Normal Inspection Respiratory/Chest: No Respiratory Distress, Lungs Clear, Normal Breath Sounds, No Accessory Muscle Use, Chest Non-Tender Cardiovascular: Normal Peripheral Pulses, Regular Rate, Rhythm, No Edema, No JVD , No Murmur GI/Abdominal: Normal Bowel Sounds, Soft, Non-Tender, No Distention Extremities: Normal Inspection, Normal Capillary Refill Neurological: Alert, Oriented, Normal Cognition, No Motor/Sensory Deficits Psychiatric: Normal Affect, Normal Mood Skin Exam: Warm, Dry, Intact, Normal Color, No Rash Course - Vital Signs Last Recorded V/S: Last Vital Signs Temp 97.8 F 09/16/18 18:26 Pulse 88 09/16/18 19:46 Resp 20 09/16/18 19:46 BP 161/62 H 09/16/18 19:46 Pulse Ox 98 09/16/18 19:46 - Orders/Labs/Meds Meds: Medications Discontinued Medications Generic Name Dose Route Start Last Admin Trade Name Ramiro PRN Reason Stop Dose Admin Hydralazine HCl 10 mg 09/16/18 18:51 09/16/18 19:19 Apresoline IVPUSH 09/16/18 18:52 10 mg ONETIME ONE Administration - Re-Assessments/Exams Free Text/Narrative Re-Assessment/Exam: 09/16/18 19:01 Pt presents to ED for the evaluation of BP issues. I have reviewed her visit from Wednesday from Dr. Boudreaux's notes, and discussed the case with Dr. Bartholomew. He recommended not repeating all of the labs, as they were all fine on Wednesday. He also recommended trying to give her Hydralazine 10mg IV for her blood pressure issues tonight. I have ordered that as per his recommendation. Dr. Boudreaux made appropriate med changes on Wednesday and the patient was made aware that this may take a few days before she sees the full effect of the changes. The patient did express the understanding of this. We also discussed the possibility of a carotid US in an outpatient setting being re-done as she says it has been a while since she has had one done. 09/16/18 20:02 Pt states that she feels better but still has a headache, she did deny any medications for this at this time. She will be discharged home. Her BP is 160 systolically. Departure - Departure Time of Disposition: 20:03 Disposition: Home, Self-Care 01 Condition: Fair Clinical Impression: Essential hypertension Instructions: How to Take Your Blood Pressure, [id number], DASH Eating Plan Referrals: Erich Wright MD [Primary Care Provider] - Forms: ED Department Discharge Additional Instructions: You have been evaluated in the ED for your high blood pressure. The increase of amlodipine medication Dr. Boudreaxu made on Wednesday may take up to a week before you see a full effect on your blood pressures. Please f/u with your primary care doctor early next week. Try to keep a blood pressure diary that states what you are doing and when, so we may correlate if your BP increases with certain activities. Please return to the ED if your symptoms should change or worsen.
[2018-09-16 19:47] VITALS: BP 161/62
== END 2018-09-16 20:14 | disposition home or self-care (01) ==
LOC: JD.ED 18:15
DX: I10 Essential (primary) hypertension (principal); E78.00 Pure hypercholesterolemia, unspecified; J45.909 Unspecified asthma, uncomplicated; Z79.82 Long term (current) use of aspirin; Z79.899 Other long term (current) drug therapy
CPT/HCPCS: 96374; 99283; J0360

== ENCOUNTER 2019-09-05 14:47 | Emergency (ER) | payer MEDICARE, BC ==
[2019-09-05] MEDS ORDERED: Ketorolac 30 MG/ML SDV IM ONE (18:03)
[2019-09-05] MEDS ORDERED: cloNIDine 0.1 MG Tab PO ONE ×2 (18:03→18:05)
[2019-09-05] MEDS ORDERED: amLODIPine 5 MG Tab PO ONE (19:05)
[2019-09-05] MEDS ORDERED: LORazepam 0.5 MG Tab PO ONE (19:08)
--- NOTE | 2019-09-05 19:32 | EDM.PDOC ---
ED HPI GENERAL MEDICAL PROBLEM - General Chief Complaint: Cardiovascular Problem Stated Complaint: HIGH BP/HEADACHE Time Seen by Provider: 09/05/19 16:22 Source of Information: Reports: Patient History Limitations: Reports: No Limitations - History of Present Illness INITIAL COMMENTS - FREE TEXT/NARRATIVE: Patient is a 78-year-old female who presents with complaints of elevated blood pressure and headache. She states her blood pressures at home last night were elevated and then again today. She started having a headache this morning. She took ibuprofen earlier this morning without relief. She states her initial blood pressure reading was in the 200s systolic. She had been seen here a few months back with a similar occurrence. At that time she was advised to increase her Norvasc 5 mg 2 twice daily instead of daily. She states she did do that for a while but she ultimately returned back to only taking it once a day. She states that she takes all her blood pressure medications first thing in the morning. She has no meds in the evening. Denies any vision changes, dizziness, or confusion. Headache Pain Score (Numeric/FACES): 8 - Related Data Allergies Allergy/AdvReac Type Severity Reaction Status Date / Time No Known Allergies Allergy Verified 09/05/19 14:57 Home Meds: Home Meds Fluticasone/Salmeterol [Advair 250-50] 1 puff INH BEDTIME 07/28/14 [History] Metoprolol Succinate [Toprol Xl] 100 mg PO DAILY 07/28/14 [History] Pravastatin [Pravachol] 80 mg PO DAILY 07/28/14 [History] amLODIPine [Norvasc] 5 mg PO DAILY 07/28/14 [History] ramipriL [Altace] 10 mg PO DAILY 07/28/14 [History] Omeprazole 20 mg PO DAILY 10/20/16 [History] hydroCHLOROthiazide [Hydrochlorothiazide] 12.5 mg PO DAILY 10/20/16 [History] Aspirin [Halfprin] 81 mg PO DAILY 06/12/17 [History] amLODIPine [Norvasc] 5 mg PO BID #30 tab 09/05/19 [Rx] Past Medical History - Past Health History Medical/Surgical History: Denies Medical/Surgical History HEENT History: Reports: Impaired Vision Cardiovascular History: Reports: Arrhythmia, High Cholesterol, Hypertension Respiratory History: Reports: Asthma Gastrointestinal History: Reports: Diverticulosis, GERD Genitourinary History: Reports: UTI, Recurrent 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 ENFORCEMENT MANAGER History: Reports: Other (See Below) Other PARKING ENFORCEMENT MANAGER History: hysterectomy Musculoskeletal History: Reports: None Neurological History: Reports: None Psychiatric History: Reports: Anxiety Endocrine/Metabolic History: Reports: None Hematologic History: Reports: None Immunologic History: Reports: None Oncologic (Cancer) History: Reports: None Dermatologic History: Reports: None - Infectious Disease History Infectious Disease History: Reports: None - Past Surgical History Head Surgeries/Procedures: Reports: None HEENT Surgical History: Reports: Tonsillectomy GI Surgical History: Reports: Appendectomy, Colonoscopy Female Surgical History: Reports: D&C, Hysterectomy, Salpingo-Oophorectomy Social & Family History - Family History Family Medical History: Noncontributory Cardiac: Reports: CAD - Tobacco Use Smoking Status *Q: Never Smoker Second Hand Smoke Exposure: No - Caffeine Use Caffeine Use: Reports: Coffee - Recreational Drug Use Recreational Drug Use: No - Living Situation & Occupation Living situation: Reports: , with Spouse Occupation: Retired ED ROS GENERAL - Review of Systems Review Of Systems: Comprehensive ROS is negative, except as noted in HPI. ED EXAM, GENERAL - Physical Exam Exam: See Below Exam Limited By: No Limitations General Appearance: Alert, WD/WN, No Apparent Distress Eye Exam: Bilateral Eye: PERRL Respiratory/Chest: No Respiratory Distress, Lungs Clear, Normal Breath Sounds, No Accessory Muscle Use, Chest Non-Tender Cardiovascular: Normal Peripheral Pulses, Regular Rate, Rhythm, No Edema, No Gallop, No JVD, No Murmur, No Rub Neurological: Alert, Oriented, CN II-XII Intact, Normal Cognition, Normal Gait, Normal Reflexes, No Motor/Sensory Deficits Psychiatric: Normal Affect, Normal Mood Skin Exam: Warm, Dry, Intact, Normal Color, No Rash Course - Vital Signs Last Recorded V/S: Last Vital Signs Temp 98.3 F 09/05/19 14:55 Pulse 66 09/05/19 19:55 Resp 19 09/05/19 19:55 BP 120/77 09/05/19 19:55 Pulse Ox 96 09/05/19 19:55 - Orders/Labs/Meds Labs: Laboratory Tests 09/05/19 09/05/19 Range/Units 17:50 17:50 WBC 8.52 (3.98-10.04) K/mm3 RBC 4.58 (3.98-5.22) M/mm3 Hgb 13.8 (11.2-15.7) gm/dl Hct 42.2 (34.1-44.9) % MCV 92.1 (79.4-94.8) fl MCH 30.1 (25.6-32.2) pg MCHC 32.7 (32.2-35.5) g/dl RDW Std Deviation 42.4 (36.4-46.3) fL Plt Count 231 (182-369) K/mm3 MPV 9.9 (9.4-12.3) fl Neutrophils % (Manual) 54 (40-60) % Band Neutrophils % 0 (0-10) % Lymphocytes % (Manual) 39 (20-40) % Atypical Lymphs % 0 % Monocytes % (Manual) 5 (2-10) % Eosinophils % (Manual) 2 (0.7-5.8) % Basophils % (Manual) 0 L (0.1-1.2) Platelet Estimate Adequate RBC Morph Comment Normal Sodium 139 (136-145) mEq/L Potassium 3.5 (3.5-5.1) mEq/L Chloride 102 (98-107) mEq/L Carbon Dioxide 27 (21-32) mEq/L Anion Gap 13.5 (5-15) BUN 16 (7-18) mg/dL Creatinine 0.9 (0.55-1.02) mg/dL Est Cr Clr Drug Dosing TNP Estimated GFR (MDRD) > 60 (>60) mL/min BUN/Creatinine Ratio 17.8 (14-18) Glucose 106 (83-115) mg/dL Calcium 9.5 (8.5-10.1) mg/dL Total Bilirubin 0.4 (0.2-1.0) mg/dL AST 21 (15-37) U/L ALT 31 (14-59) U/L Alkaline Phosphatase 64 (46-116) U/L Total Protein 7.7 (6.4-8.2) g/dl Albumin 4.1 (3.4-5.0) g/dl Globulin 3.6 gm/dL Albumin/Globulin Ratio 1.1 (1-2) Meds: Medications Discontinued Medications Generic Name Dose Route Start Last Admin Trade Name Freq PRN Reason Stop Dose Admin Amlodipine Besylate 5 mg 09/05/19 19:05 09/05/19 19:07 Norvasc PO 09/05/19 19:06 Not Given ONETIME ONE Clonidine HCl 0.2 mg 09/05/19 18:03 09/05/19 18:10 Catapres PO 09/05/19 18:04 Not Given ONETIME ONE Clonidine HCl 0.1 mg 09/05/19 18:05 09/05/19 18:09 Catapres PO 09/05/19 18:06 0.1 mg ONETIME ONE Administration Ketorolac Tromethamine 30 mg 09/05/19 18:03 09/05/19 18:11 Toradol IM 09/05/19 18:04 30 mg ONETIME ONE Administration Lorazepam 0.5 mg 09/05/19 19:08 09/05/19 19:35 Ativan PO 09/05/19 19:09 0.5 mg ONETIME ONE Administration - Re-Assessments/Exams Free Text/Narrative Re-Assessment/Exam: 09/05/19 19:33 patient received clonidine 0.1 mg by mouth as well as Toradol 30 mg IM. She did tell the nurses that she felt a little anxious and requested something to help with that. I have ordered Ativan 0.5 mg by mouth. Blood pressure at this time has gone down to 126/70 and she states that her headache has resolved. I will discharge her home with the recommendation that she take her Norvasc 5 mg twice daily and follow-up with her primary care provider next week. Discharge instructions as noted. Departure - Departure Time of Disposition: 19:34 Disposition: Home, Self-Care 01 Condition: Fair Clinical Impression: Hypertension Qualifiers: Hypertension type: essential hypertension Qualified Code(s): I10 - Essential ( primary) hypertension Prescriptions: amLODIPine [Norvasc] 5 mg PO BID #30 tab Instructions: Hypertension Referrals: Erich Wright MD [Primary Care Provider] - Forms: ED Department Discharge Additional Instructions: You were seen in the emergency department tonight for headache and elevated blood pressure. You received clonidine for your blood pressure and an injection of Toradol for your headache. You also received a dose of Ativan for anxiety. At the time of discharge, your blood pressure had improved to 126/70 and you verbalized that your headache had resolved. I would recommend that you increase your Norvasc to 5 mg twice daily instead of daily starting tomorrow. It is also advised that you schedule a follow-up appointment with her primary care provider sometime next week. If you he should experience any new or worsening symptoms, please do not hesitate to return to the emergency department. Sepsis Event Note - Evaluation Sepsis Screening Result: No Definite Risk - Focused Exam Date Exam was Performed: 09/06/19 Time Exam was Performed: 20:59
[2019-09-05 20:25] VITALS: BP 120/77; PULSE 66
== END 2019-09-05 19:55 | disposition home or self-care (01) ==
LOC: JD.ED 14:47
DX: I10 Essential (primary) hypertension (principal); E78.00 Pure hypercholesterolemia, unspecified; J45.909 Unspecified asthma, uncomplicated; K21.9 Gastro-esophageal reflux disease without esophagitis; Z79.51 Long term (current) use of inhaled steroids; Z79.899 Other long term (current) drug therapy; Z79.82 Long term (current) use of aspirin
CPT/HCPCS: 36415; 80053; 85007; 85027; 96372; 99284; A9270; J1885; 99283

== ENCOUNTER 2020-05-11 11:17 | Emergency (ER) | payer MEDICARE, BC ==
[2020-05-11 11:29] VITALS: BP 194/74; PULSE 80
[2020-05-11] MEDS ORDERED: diphenhydrAMINE 50 MG Cap PO ONE (11:49)
[2020-05-11] MEDS ORDERED: Acetaminophen 325 MG Tab PO ONE (11:49)
[2020-05-11] MEDS ORDERED: diphenhydrAMINE 25 MG Cap PO ONE (11:58)
--- NOTE | 2020-05-11 12:05 | EDM.PDOC ---
ED HPI GENERAL MEDICAL PROBLEM - General Chief Complaint: Headache Stated Complaint: HEADACHE AND BLURRED VISION Time Seen by Provider: 05/11/20 11:34 Source of Information: Reports: Patient History Limitations: Reports: No Limitations - History of Present Illness INITIAL COMMENTS - FREE TEXT/NARRATIVE: Patient is a 79-year-old female with a history of hypertension who presents to the ED complaining of left eye vision blurriness and intermittent headache. States yesterday she had 3 episodes when she developed a headache retro-orbital with some intermittent blurred vision that only lasted approximately 15 minutes. This occurred 3 times. Symptoms were mild in nature. No additional symptoms noted. Today while driving she had another episode with similar symptoms that o nly lasted for short period of time. She has had no facial droop, slurred speech, difficulty swallowing, mentation changes, confusion, weakness discrepancies to the upper or lower extremities, chest pain, shortness of breath, fever, dental pain, sinus congestion runny nose epistaxis, or ear pain. She has taken all her home medications as prescribed. Patient has no history of TIAs or strokes. Patient she was told by her drafter refrigeration that she has migraines. She has had no further work-up since being evaluated by eye specialists. Headache Pain Score (Numeric/FACES): 6 - Related Data Allergies Allergy/AdvReac Type Severity Reaction Status Date / Time No Known Allergies Allergy Verified 05/11/20 11:29 Home Meds: Home Meds Fluticasone/Salmeterol [Advair 250-50] 1 puff INH BEDTIME 07/28/14 [History] Metoprolol Succinate [Toprol Xl] 100 mg PO DAILY 07/28/14 [History] Pravastatin [Pravachol] 80 mg PO DAILY 07/28/14 [History] amLODIPine [Norvasc] 10 mg PO DAILY 07/28/14 [History] ramipriL [Altace] 10 mg PO DAILY 07/28/14 [History] Omeprazole 20 mg PO DAILY 10/20/16 [History] hydroCHLOROthiazide [Hydrochlorothiazide] 12.5 mg PO DAILY 10/20/16 [History] Aspirin [Halfprin] 81 mg PO DAILY 06/12/17 [History] Past Medical History - Past Health History Medical/Surgical History: Denies Medical/Surgical History HEENT History: Reports: Impaired Vision Cardiovascular History: Reports: Arrhythmia, High Cholesterol, Hypertension Respiratory History: Reports: Asthma Gastrointestinal History: Reports: Diverticulosis, GERD Genitourinary History: Reports: UTI, Recurrent CRAFT ARTIST 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: Reports: Other (See Below) Other CRAFT ARTIST History: hysterectomy Musculoskeletal History: Reports: None Neurological History: Reports: None Psychiatric History: Reports: Anxiety Endocrine/Metabolic History: Reports: None Hematologic History: Reports: None Immunologic History: Reports: None Oncologic (Cancer) History: Reports: None Dermatologic History: Reports: None - Infectious Disease History Infectious Disease History: Reports: None - Past Surgical History Head Surgeries/Procedures: Reports: None HEENT Surgical History: Reports: Tonsillectomy GI Surgical History: Reports: Appendectomy, Colonoscopy Female Surgical History: Reports: D&C, Hysterectomy, Salpingo-Oophorectomy Social & Family History - Family History Family Medical History: Noncontributory Cardiac: Reports: CAD - Tobacco Use Smoking Status *Q: Never Smoker - Caffeine Use Caffeine Use: Reports: Coffee - Recreational Drug Use Recreational Drug Use: No - Living Situation & Occupation Living situation: Reports: , with Spouse Occupation: Retired ED ROS GENERAL - Review of Systems Review Of Systems: Comprehensive ROS is negative, except as noted in HPI. - Physical Exam Exam: See Below Exam Limited By: No Limitations General Appearance: Alert, WD/WN, No Apparent Distress Eye Exam: Bilateral Eye: EOMI, Normal Inspection, Nystagmus (None noted), PERRL, Vision Changes (None noted on exam or patient.) Ears: Normal External Exam, Normal Canal, Hearing Grossly Normal, Normal TMs Nose: Normal Inspection, Normal Mucosa, No Blood Throat/Mouth: Normal Inspection, Normal Lips, Normal Oropharynx, Normal Voice, No Airway Compromise Head Exam: Atraumatic, Normocephalic. No: Facial Tenderness, Sinus Tenderness Neck: Normal Inspection, Supple, Non-Tender, Full Range of Motion. No: Carotid Bruit (Unable to completely determine if patient has carotid bruits. She has aortic stenosis with systolic murmur that radiates into her carotids bilatera lly.) Respiratory/Chest: No Respiratory Distress, Lungs Clear, Normal Breath Sounds, No Accessory Muscle Use, Chest Non-Tender Cardiovascular: Normal Peripheral Pulses, Regular Rate, Rhythm, Systolic Murmur Neuro Exam (Abbreviated): Alert, Oriented, CN II-XII Intact, Normal Cognition, Normal Gait, No Motor/Sensory Deficits, Other (No facial droop, slurred speech, vision loss, difficulty swallowing, tongue deviation, pronator drift, weakness discrepancies to the upper and lower extremities, or sensation changes. Finger- to-nose, rapid alternating movements, and eidf-dy-iral are intact.) Back Exam: Normal Inspection, Full Range of Motion Extremities: Normal Inspection, Normal Range of Motion, Non-Tender, No Pedal Edema Psychiatric: Normal Affect, Normal Mood Skin Exam: Warm, Dry, Intact, Normal Color Course - Vital Signs Last Recorded V/S: Last Vital Signs Temp 97.6 F 05/11/20 11:25 Pulse 80 05/11/20 11:25 Resp 18 05/11/20 11:25 BP 194/74 H 05/11/20 11:25 Pulse Ox 98 05/11/20 11:25 - Orders/Labs/Meds Orders: Active Orders 24 hr Category Date Time Status Head wo Cont [CT] Stat Exams 05/11/20 11:55 Taken Labs: Laboratory Tests 05/11/20 05/11/20 Range/Units 12:05 12:05 WBC 7.74 (3.98-10.04) K/mm3 RBC 4.09 (3.98-5.22) M/mm3 Hgb 12.6 (11.2-15.7) gm/dl Hct 37.8 (34.1-44.9) % MCV 92.4 (79.4-94.8) fl MCH 30.8 (25.6-32.2) pg MCHC 33.3 (32.2-35.5) g/dl RDW Std Deviation 42.5 (36.4-46.3) fL Plt Count 236 (182-369) K/mm3 MPV 9.8 (9.4-12.3) fl Neutrophils % (Manual) 57 (40-60) % Band Neutrophils % 0 (0-10) % Lymphocytes % (Manual) 31 (20-40) % Atypical Lymphs % 0 % Monocytes % (Manual) 10 (2-10) % Eosinophils % (Manual) 2 (0.7-5.8) % Basophils % (Manual) 0 L (0.1-1.2) Platelet Estimate Adequate RBC Morph Comment Normal Sodium 138 (136-145) mEq/L Potassium 3.7 (3.5-5.1) mEq/L Chloride 101 (98-107) mEq/L Carbon Dioxide 28 (21-32) mEq/L Anion Gap 12.7 (5-15) BUN 21 H (7-18) mg/dL Creatinine 1.2 H (0.55-1.02) mg/dL Est Cr Clr Drug Dosing 29.16 mL/min Estimated GFR (MDRD) 43 (>60) mL/min BUN/Creatinine Ratio 17.5 (14-18) Glucose 123 H (83-115) mg/dL Calcium 8.7 (8.5-10.1) mg/dL Total Bilirubin 0.4 (0.2-1.0) mg/dL AST 23 (15-37) U/L ALT 35 (14-59) U/L Alkaline Phosphatase 66 (46-116) U/L C-Reactive Protein 2.8 H* (<1.0) mg/dL Total Protein 7.4 (6.4-8.2) g/dl Albumin 3.9 (3.4-5.0) g/dl Globulin 3.5 gm/dL Albumin/Globulin Ratio 1.1 (1-2) Meds: Medications Discontinued Medications Generic Name Dose Route Start Last Admin Trade Name Freq PRN Reason Stop Dose Admin Acetaminophen 975 mg 05/11/20 11:49 05/11/20 11:56 Tylenol PO 05/11/20 11:50 975 mg NOW ONE Administration Diphenhydramine HCl 25 mg 05/11/20 11:49 05/11/20 11:59 Benadryl PO 05/11/20 11:50 Not Given ONETIME ONE Diphenhydramine HCl 25 mg 05/11/20 11:58 05/11/20 12:02 Benadryl PO 05/11/20 11:59 25 mg ONETIME ONE Administration - Re-Assessments/Exams Free Text/Narrative Re-Assessment/Exam: On exam patient's blood pressure is 175/65, heart rate 78, respiratory rate 18, temperature is 97.6, and O2 sats are 98% on room air. She is alert and oriented x3. She does not appear in acute distress. No focal deficits noted. Patient states she has mild left-sided retro-orbital headache with no vision loss or changes. Exam did not reveal any concerning findings. Unclear etiology of current headache. She has in the past been told she has a history of migraines but does not completely fit the picture of the headaches that come and go over a short period of time with some vision changes. Unable to completely ascertain if patient has any carotid bruits since she has a systolic murmur that radiates into her carotids which I suspect is related to aortic stenosis based on cardiac exam. She has had a echocardiogram in the past but is been quite some time. She is on a multitude of different medications for hypertension. She has been taking all these medications as prescribed. Patient has taken ibuprofen today 200 mg at approximate 7:00 this morning. We will go ahead and order Tylenol 975 mg p.o. 1 time and also Benadryl 25 mg p.o. since patient appears to be slightly anxious. Labs will be obtained including CBC and a CHEM 14. CT of the head without contrast will be obtained as well. 05/11/20 13:00 Reassessment, patient resting comfortably in bed. She has no headache or vision changes. Vital signs are stable. Head impression: Mild atrophy. No acute intracranial abnormality present. Labs reviewed: CBC and CHEM 14 are essentially normal. Repeat mildly elevated 2.4. Unclear etiology of elevated CRP. At this time she has no other symptoms that require further testing or imaging while in the ED. She will require additional echocardiogram and carotid ultrasounds due to her history and physical findings. She is aware of this. I have also asked the patient to monitor her blood pressure on a daily basis. Keep a log and presented to the clinic with her PCP to evaluate. Bring the blood pressure machine with her. Return precautions were discussed with the patient. She had no further questions or concerns and agreed with plan. 05/11/20 13:15 Prior to discharge patient has no symptoms. BP 158/64. Departure - Departure Time of Disposition: 13:02 Disposition: Home, Self-Care 01 Condition: Good Clinical Impression: Mixed headache, Blurred vision, left eye - Discharge Information Instructions: Blurred Vision, Adult, Visual Disturbances Referrals: Erich Wright MD [Primary Care Provider] - Forms: ED Department Discharge Additional Instructions: Unfortunately, unclear etiology of current headache and episode of blurred vision. CT of the head and labs indicated no concerning findings. Please use Tylenol 650 mg every 4-6 hours as needed for discomfort. Suggest following up with PCP in the next 3 to 5 days for reevaluation. Please monitor your blood pressure on a daily basis with a log. Bring the log and also blood pressure machine with you to the clinic evaluation. Continue taking all your home medications as prescribed. If for any reason you develop any new or worsening symptoms as we discussed please return back to the ED immediately. I would suggest repeat echocardiogram and also carotid ultrasounds based on the findings on exam since it has been quite sometime since last echocardiogram. Follow-up with your garment inspector or drafter refrigeration of your choice for further evaluation of visual disturbances. Sepsis Event Note (ED) - Evaluation Sepsis Screening Result: No Definite Risk - Focused Exam Vital Signs: Vital Signs Temp Pulse Resp BP Pulse Ox 05/11/20 11:25 97.6 F 80 18 194/74 H 98 - My Orders Last 24 Hours: My Active Orders 05/11/20 11:55 Head wo Cont [CT] Stat - Assessment/Plan Last 24 Hours: My Active Orders 05/11/20 11:55 Head wo Cont [CT] Stat
--- NOTE | 2020-06-14 10:07 | CT ---
PROCEDURE INFORMATION: Exam: CT Head Without Contrast Exam date and time: 05/11/2020 12:12 PM Age: 79 years old Clinical indication: Visual disturbance; Patient HX: Blurred vision, lt sided headache TECHNIQUE: Imaging protocol: Computed tomography of the head without contrast. Radiation optimization: All CT scans at this facility use at least one of these dose optimization techniques: automated exposure control; mA and/or kV adjustment per patient size (includes targeted exams where dose is matched to clinical indication); or iterative reconstruction. COMPARISON: No relevant prior studies available. FINDINGS: Brain: Normal. No hemorrhage. Unremarkable white matter. No mass effect. Cerebral ventricles: On the ventricles and sulci are mildly prominent consistent with mild global volume loss/atrophy. There is no hydrocephalus. Bones/joints: Unremarkable. No acute fracture. Paranasal sinuses: Visualized sinuses are unremarkable. No fluid levels. Mastoid air cells: Visualized mastoid air cells are well aerated. Soft tissues: Unremarkable. IMPRESSION: Mild atrophy. No acute intracranial abnormality present. Thank you for allowing us to participate in the care of your patient. Dictated and Authenticated by: Jas Mcclure MD 06/14/2020 10:56 AM Central Time ([place] & [place]) [facility]
== END 2020-05-11 13:20 | disposition home or self-care (01) ==
LOC: JD.ED 11:17
DX: R51.9 Headache, unspecified (principal); H53.8 Other visual disturbances; I10 Essential (primary) hypertension; E78.00 Pure hypercholesterolemia, unspecified; J45.909 Unspecified asthma, uncomplicated; K21.9 Gastro-esophageal reflux disease without esophagitis; Z90.710 Acquired absence of both cervix and uterus; Z90.49 Acquired absence of other specified parts of digestive tract; Z79.82 Long term (current) use of aspirin; Z79.899 Other long term (current) drug therapy
CPT/HCPCS: 36415; 70450; 80053; 85007; 85027; 86140; 99284; A9270; 99283

== ENCOUNTER 2021-06-02 20:03 | Emergency (ER) | payer MEDICARE, BC | END 2021-06-02 20:57 | disposition home or self-care (01) | LOC: JD.ED 20:03 | DX: Z53.21 Procedure and treatment not carried out due to patient leaving prior to being seen by health care provider (principal) ==

== ENCOUNTER 2022-08-02 05:40 | Emergency (ER) | payer MEDICARE, BC ==
[2022-08-02 05:50] VITALS: PULSE 87
[2022-08-02] MEDS ORDERED: Aspirin 81 MG Tab.Chew PO ONE (06:04)
[2022-08-02 09:53] VITALS: BP 144/64
== END 2022-08-02 09:00 | disposition home or self-care (01) ==
LOC: JD.ED 05:40
DX: K21.9 Gastro-esophageal reflux disease without esophagitis (principal); E78.00 Pure hypercholesterolemia, unspecified; I10 Essential (primary) hypertension; J45.909 Unspecified asthma, uncomplicated; I44.7 Left bundle-branch block, unspecified; Z79.82 Long term (current) use of aspirin; Z79.899 Other long term (current) drug therapy
CPT/HCPCS: 36415; 71045; 80053; 84484; 85025; 85610; 85730; 93005; 99285; A9270

== ENCOUNTER 2022-11-05 16:47 | Emergency (ER) | payer MEDICARE, BC ==
[2022-11-05 17:00] VITALS: BP 196/75; PULSE 80
[2022-11-05 18:42] LABS: CORONAVIRUS COVID-19 NAA NEGATIVE (NEGATIVE)
[2022-11-05] MEDS ORDERED: Sulfamethoxazole/Trimethoprim 800-160 MG Tab PO ONE (20:15)
== END 2022-11-05 20:30 | disposition home or self-care (01) ==
LOC: JD.ED 16:47
DX: N39.0 Urinary tract infection, site not specified (principal); E78.00 Pure hypercholesterolemia, unspecified; I10 Essential (primary) hypertension; K21.9 Gastro-esophageal reflux disease without esophagitis; E66.9 Obesity, unspecified; Z68.28 Body mass index [BMI] 28.0-28.9, adult; Z79.82 Long term (current) use of aspirin; Z79.899 Other long term (current) drug therapy; Z20.822 Contact with and (suspected) exposure to COVID-19
CPT/HCPCS: 0241U; 36415; 71046; 80053; 81001; 83735; 83880; 84484; 85025; 85379; 85730; 87040; 93005; 99285; A9270; 93010; 99283

== ENCOUNTER 2023-03-19 22:16 | Emergency (ER) | payer MEDICARE, BC ==
[2023-03-19 23:52] LABS: BASOPHILS ABSOLUTE AUTO 0.03 K/mm3 (0.01-0.08); BASOPHILS PERCENT AUTO 0.3 % (0.1-1.2); EOSINOPHILS ABSOLUTE AUTO 0.19 K/mm3 (0.04-0.36); EOSINOPHILS PERCENT AUTO 1.9 (0.7-5.8); HEMATOCRIT 41.3 % (34.1-44.9); HEMOGLOBIN 13.8 gm/dl (11.2-15.7); IMMATURE GRAN ABSOLUTE AUTO 0.01 K/mm3 (0.00-0.10); IMMATURE GRAN PERCENT AUTO 0.1 % (<=1.0); LYMPHOCYTES ABSOLUTE AUTO 2.32 K/mm3 (1.18-3.74); LYMPHOCYTES PERCENT AUTO 23.1 % (19.3-51.7); MEAN CORPUSCULAR HEMOGLOBIN 30.9 pg (25.6-32.2); MEAN CORPUSCULAR HGB CONC 33.4 g/dl (32.2-35.5); MEAN CORPUSCULAR VOLUME 92.6 fl (79.4-94.8); MEAN PLATELET VOLUME 9.5 fl (9.4-12.3); MONOCYTES ABSOLUTE AUTO 0.96 K/mm3 (0.24-0.36); MONOCYTES PERCENT AUTO 9.6 % (4.7-12.5); NEUTROPHILS ABSOLUTE AUTO 6.54 K/mm3 (1.56-6.13); PLATELET COUNT,PLT 271 K/mm3 (182-369); RED BLOOD CELL COUNT 4.46 M/mm3 (3.98-5.22); WHITE BLOOD CELL COUNT,WBC 10.05 K/mm3 (3.98-10.04)
[2023-03-20 00:18] LABS: A/G RATIO 1.2 (1-2); ALBUMIN 4.2 g/dl (3.4-5.0); ANION GAP 15.4 (5-15); BILIRUBIN TOTAL 0.2 mg/dL (0.2-1.0); BUN/CREATININE RATIO 16.2 (14-18); CALCIUM 9.3 mg/dL (8.5-10.1); CREATININE 1.3 mg/dL (0.55-1.02); EST CRCL DRUG DOSING (CG) 25.61 mL/min; POTASSIUM,K 4.4 mEq/L (3.5-5.1); PROTEIN TOTAL,TP 7.8 g/dl (6.4-8.2)
[2023-03-20] MEDS ORDERED: Iopamidol 612 MG/ML 100 ML Bottle IVPUSH ONE (01:05)
[2023-03-20 02:16] VITALS: BP 136/86; PULSE 74
== END 2023-03-20 02:07 | disposition home or self-care (01) ==
LOC: JD.ED 22:16
DX: K60.3 Anal fistula (principal); E78.00 Pure hypercholesterolemia, unspecified; I10 Essential (primary) hypertension; J45.909 Unspecified asthma, uncomplicated; K21.9 Gastro-esophageal reflux disease without esophagitis; E66.9 Obesity, unspecified; Z79.899 Other long term (current) drug therapy; Z79.82 Long term (current) use of aspirin; Z79.51 Long term (current) use of inhaled steroids; Z68.29 Body mass index [BMI] 29.0-29.9, adult
CPT/HCPCS: 36415; 74177; 80053; 85025; 99284; Q9967

== ENCOUNTER 2023-03-24 10:04 | Day surgery (SDC) | payer MEDICARE, BC ==
[~2023-03-24 10:04] MED LIST: Lactated Ringers 1,000 ML IV SCH; Propofol 200 MG/20 ML SDV ONE; Sodium Chloride 0.9% 10 ML Syringe FLUSH PRN; Sodium Chloride 0.9% 10 ML Syringe FLUSH SCH
[2023-03-24] MEDS ORDERED: Lidocaine 1% 4 ML ONE (10:10)
[2023-03-24 13:25] VITALS: BP 140/66; PULSE 74
== END 2023-03-24 13:14 | disposition home or self-care (01) ==
LOC: JD.SDS 10:04
PROVIDERS: ATTEND Surgery
DX: K29.50 Unspecified chronic gastritis without bleeding (principal); K31.7 Polyp of stomach and duodenum; K64.8 Other hemorrhoids; K44.9 Diaphragmatic hernia without obstruction or gangrene; K57.30 Diverticulosis of large intestine without perforation or abscess without bleeding; K52.9 Noninfective gastroenteritis and colitis, unspecified; J45.909 Unspecified asthma, uncomplicated; I10 Essential (primary) hypertension; K21.9 Gastro-esophageal reflux disease without esophagitis; E78.2 Mixed hyperlipidemia; E02 Subclinical iodine-deficiency hypothyroidism; I63.9 Cerebral infarction, unspecified; N83.209 Unspecified ovarian cyst, unspecified side; K64.9 Unspecified hemorrhoids; E66.9 Obesity, unspecified; F41.9 Anxiety disorder, unspecified; I49.9 Cardiac arrhythmia, unspecified; Z90.49 Acquired absence of other specified parts of digestive tract; Z90.710 Acquired absence of both cervix and uterus; Z79.82 Long term (current) use of aspirin; Z90.89 Acquired absence of other organs; Z79.899 Other long term (current) drug therapy; Z68.29 Body mass index [BMI] 29.0-29.9, adult
CPT/HCPCS: 43239; 45331; J2704; J7120; 00813; 99100; J3490

== ENCOUNTER 2023-07-19 17:33 | Emergency (ER) | payer MEDICARE, BC ==
[2023-07-19] MEDS ORDERED: Sodium Chloride 0.9% 10 ML Syringe FLUSH PRN (18:02)
[2023-07-19] MEDS ORDERED: Labetalol 100 MG/20 ML MDV IVPUSH ONE (18:03)
[2023-07-19] MEDS ORDERED: LORazepam 2 MG/ML SDV IVPUSH ONE (18:04)
[2023-07-19 19:08] LABS: BASOPHILS PERCENT AUTO 0.4 % (0.0-1.0); EOSINOPHILS ABSOLUTE AUTO 0.2 K/mm3 (0.0-0.4); EOSINOPHILS PERCENT AUTO 1.4 % (0.0-6.0); HEMATOCRIT 41.4 % (37.0-47.0); HEMOGLOBIN 14.5 gm/dl (12.0-16.0); IMMATURE GRAN ABSOLUTE AUTO 0.04 K/mm3 (0.00-0.05); IMMATURE GRAN PERCENT AUTO 0.4 % (0.0-0.4); LYMPHOCYTES ABSOLUTE AUTO 2.4 K/mm3 (1.0-4.8); LYMPHOCYTES PERCENT AUTO 22.9 % (24.0-44.0); MEAN CORPUSCULAR HEMOGLOBIN 31.3 pg (28.0-32.0); MEAN CORPUSCULAR VOLUME 89.2 fl (83.0-99.0); MEAN PLATELET VOLUME 9.1 fl (9.4-12.3); MONOCYTES ABSOLUTE AUTO 0.9 K/mm3 (0.0-0.8); MONOCYTES PERCENT AUTO 8.5 % (0.0-8.0); NEUTROPHILS PERCENT AUTO 66.4 % (41.0-71.0); PLATELET COUNT,PLT 292 K/mm3 (150-400); RED BLOOD CELL COUNT 4.64 M/mm3 (4.10-5.30); WHITE BLOOD CELL COUNT,WBC 10.52 K/mm3 (3.9-11.3)
[2023-07-19 19:38] LABS: A/G RATIO 1.1 (1-2); ALBUMIN 4.1 g/dl (3.4-5.0); ANION GAP 12.4 (5-15); BILIRUBIN TOTAL 0.4 mg/dL (0.2-1.0); BUN/CREATININE RATIO 18.9 (14-18); CALCIUM 9.6 mg/dL (8.5-10.1); CREATININE 0.9 mg/dL (0.55-1.02); EST CRCL DRUG DOSING (CG) 36.99 mL/min; POTASSIUM,K 3.4 mEq/L (3.5-5.1); PROTEIN TOTAL,TP 7.9 g/dl (6.4-8.2)
[2023-07-19] MEDS ORDERED: LORazepam 0.5 MG Tab PO ONE (20:01)
[2023-07-19 20:32] VITALS: BP 128/83; PULSE 74
== END 2023-07-19 20:30 | disposition home or self-care (01) ==
LOC: JD.ED 17:33
DX: F43.0 Acute stress reaction (principal); I10 Essential (primary) hypertension; K21.9 Gastro-esophageal reflux disease without esophagitis; E66.9 Obesity, unspecified; Z68.30 Body mass index [BMI] 30.0-30.9, adult; Z79.899 Other long term (current) drug therapy; Z79.82 Long term (current) use of aspirin; Z90.49 Acquired absence of other specified parts of digestive tract; Z90.710 Acquired absence of both cervix and uterus
CPT/HCPCS: 36415; 70450; 80053; 84484; 85025; 93005; 96374; 96375; 99284; A9270; J2060; J3490; 93010

== ENCOUNTER 2023-07-28 17:44 | Emergency (ER) | payer MEDICARE, BC ==
[2023-07-28] MEDS ORDERED: LORazepam 0.5 MG Tab PO ONE (18:46)
[2023-07-28 19:19] LABS: BASOPHILS PERCENT AUTO 0.3 % (0.0-1.0); EOSINOPHILS ABSOLUTE AUTO 0.2 K/mm3 (0.0-0.4); EOSINOPHILS PERCENT AUTO 2.2 % (0.0-6.0); HEMATOCRIT 39.7 % (37.0-47.0); HEMOGLOBIN 13.6 gm/dl (12.0-16.0); IMMATURE GRAN ABSOLUTE AUTO 0.03 K/mm3 (0.00-0.05); IMMATURE GRAN PERCENT AUTO 0.3 % (0.0-0.4); LYMPHOCYTES ABSOLUTE AUTO 2.7 K/mm3 (1.0-4.8); LYMPHOCYTES PERCENT AUTO 25.9 % (24.0-44.0); MEAN CORPUSCULAR HGB CONC 34.3 g/dl (32.0-36.0); MEAN CORPUSCULAR VOLUME 90.4 fl (83.0-99.0); MONOCYTES ABSOLUTE AUTO 0.8 K/mm3 (0.0-0.8); MONOCYTES PERCENT AUTO 7.8 % (0.0-8.0); NEUTROPHILS ABSOLUTE AUTO 6.5 K/mm3 (1.8-7.7); NEUTROPHILS PERCENT AUTO 63.5 % (41.0-71.0); PLATELET COUNT,PLT 256 K/mm3 (150-400); RED BLOOD CELL COUNT 4.39 M/mm3 (4.10-5.30); WHITE BLOOD CELL COUNT,WBC 10.22 K/mm3 (3.9-11.3)
[2023-07-28 19:48] LABS: A/G RATIO 1.1 (1-2); ALBUMIN 4.1 g/dl (3.4-5.0); ANION GAP 14.5 (5-15); BILIRUBIN TOTAL 0.3 mg/dL (0.2-1.0); BUN/CREATININE RATIO 15.6 (14-18); CALCIUM 9.7 mg/dL (8.5-10.1); CREATININE 0.9 mg/dL (0.55-1.02); EST CRCL DRUG DOSING (CG) 36.99 mL/min; POTASSIUM,K 3.5 mEq/L (3.5-5.1); PROTEIN TOTAL,TP 7.7 g/dl (6.4-8.2)
[2023-07-28 19:50] LABS: APPEARANCE,URINE CLEAR (Clear); BILIRUBIN,URINE NEGATIVE (Negative); COLOR,URINE YELLOW (Yellow); GLUCOSE,URINE NEGATIVE (Negative); KETONES,URINE NEGATIVE (Negative); LEUKOCYTE ESTERASE,URINE NEGATIVE (Negative); NITRITE,URINE NEGATIVE (Negative); OCCULT BLOOD,URINE NEGATIVE (Negative); PROTEIN,URINE NEGATIVE (Negative); UROBILINOGEN,URINE 0.2 (0.2-1.0)
[2023-07-28] MEDS ORDERED: hydrALAZINE 25 MG Tab PO STA (20:07)
[2023-07-28 22:34] VITALS: BP 182/81; PULSE 82
== END 2023-07-28 22:33 | disposition home or self-care (01) ==
LOC: JD.ED 17:44
DX: F41.9 Anxiety disorder, unspecified (principal); I10 Essential (primary) hypertension; E78.00 Pure hypercholesterolemia, unspecified; J45.909 Unspecified asthma, uncomplicated; K21.9 Gastro-esophageal reflux disease without esophagitis; E66.9 Obesity, unspecified; Z68.28 Body mass index [BMI] 28.0-28.9, adult; Z79.899 Other long term (current) drug therapy; Z79.82 Long term (current) use of aspirin
CPT/HCPCS: 36415; 80053; 81003; 84484; 85025; 93005; 99284; A9270; 93010

== ENCOUNTER 2023-11-30 02:33 | Emergency (ER) | payer MEDICARE ==
[2023-11-30 02:44] VITALS: BP 191/82; PULSE 111
== END 2023-11-30 03:53 | disposition home or self-care (01) ==
LOC: JD.ED 02:33
DX: K94.03 Colostomy malfunction (principal); I10 Essential (primary) hypertension; E78.00 Pure hypercholesterolemia, unspecified; Z86.16 Personal history of COVID-19; Z90.710 Acquired absence of both cervix and uterus; Z79.82 Long term (current) use of aspirin; Z79.899 Other long term (current) drug therapy
CPT/HCPCS: 99282; 99283

== ENCOUNTER 2023-12-03 18:51 | Emergency (ER) | payer MEDICARE ==
[2023-12-03 22:39] VITALS: BP 142/89; PULSE 81
== END 2023-12-03 21:40 | disposition home or self-care (01) ==
LOC: JD.ED 18:51
DX: Z43.3 Encounter for attention to colostomy (principal); I10 Essential (primary) hypertension; E78.00 Pure hypercholesterolemia, unspecified; K21.9 Gastro-esophageal reflux disease without esophagitis; E66.9 Obesity, unspecified; Z86.16 Personal history of COVID-19; Z79.82 Long term (current) use of aspirin; Z79.899 Other long term (current) drug therapy; Z68.27 Body mass index [BMI] 27.0-27.9, adult
CPT/HCPCS: 99282

== ENCOUNTER 2023-12-11 13:30 | Emergency (ER) | payer MEDICARE ==
[2023-12-11 14:58] LABS: BASOPHILS ABSOLUTE AUTO 0.1 K/mm3 (0.0-0.2); BASOPHILS PERCENT AUTO 0.6 % (0.0-1.0); EOSINOPHILS ABSOLUTE AUTO 0.2 K/mm3 (0.0-0.4); EOSINOPHILS PERCENT AUTO 1.9 % (0.0-6.0); HEMOGLOBIN 12.4 gm/dl (12.0-16.0); IMMATURE GRAN ABSOLUTE AUTO 0.02 K/mm3 (0.00-0.05); IMMATURE GRAN PERCENT AUTO 0.2 % (0.0-0.4); LYMPHOCYTES ABSOLUTE AUTO 1.9 K/mm3 (1.0-4.8); LYMPHOCYTES PERCENT AUTO 21.1 % (24.0-44.0); MEAN CORPUSCULAR HEMOGLOBIN 32.5 pg (28.0-32.0); MEAN CORPUSCULAR HGB CONC 35.4 g/dl (32.0-36.0); MEAN CORPUSCULAR VOLUME 91.9 fl (83.0-99.0); MEAN PLATELET VOLUME 8.5 fl (9.4-12.3); MONOCYTES ABSOLUTE AUTO 0.6 K/mm3 (0.0-0.8); MONOCYTES PERCENT AUTO 6.3 % (0.0-8.0); NEUTROPHILS ABSOLUTE AUTO 6.2 K/mm3 (1.8-7.7); NEUTROPHILS PERCENT AUTO 69.9 % (41.0-71.0); PLATELET COUNT,PLT 385 K/mm3 (150-400); RED BLOOD CELL COUNT 3.81 M/mm3 (4.10-5.30)
[2023-12-11] MEDS: Sodium Chloride 0.9% 1,000 ML IV STA (15:06)
[2023-12-11] MEDS: Ondansetron 4 MG/2 ML SDV IVPUSH ONE (15:08)
[2023-12-11] MEDS: Sodium Chloride 0.9% 10 ML Syringe FLUSH PRN (15:08)
[2023-12-11 15:17] LABS: APPEARANCE,URINE CLEAR (Clear); BILIRUBIN,URINE NEGATIVE (Negative); COLOR,URINE YELLOW (Yellow); GLUCOSE,URINE NEGATIVE (Negative); KETONES,URINE NEGATIVE (Negative); LEUKOCYTE ESTERASE,URINE NEGATIVE (Negative); NITRITE,URINE NEGATIVE (Negative); OCCULT BLOOD,URINE NEGATIVE (Negative); PROTEIN,URINE NEGATIVE (Negative); UROBILINOGEN,URINE 0.2 (0.2-1.0)
[2023-12-11 15:26] LABS: BACTERIA,URINE FEW /hpf (FEW); MUCUS,URINE FEW /hpf (FEW); RBC,URINE 0-5 /hpf (0-5); WBC,URINE 0-5 /hpf (0-5)
[2023-12-11 15:30] LABS: A/G RATIO 1.1 (1-2); ALBUMIN 3.9 g/dl (3.4-5.0); ANION GAP 19.4 (5-15); BILIRUBIN TOTAL 0.3 mg/dL (0.2-1.0); BUN/CREATININE RATIO 29.3 (14-18); CALCIUM 9.5 mg/dL (8.5-10.1); CREATININE 1.4 mg/dL (0.55-1.02); EST CRCL DRUG DOSING (CG) 23.38 mL/min; MAGNESIUM 1.3 mg/dL (1.8-2.4); POTASSIUM,K 4.4 mEq/L (3.5-5.1); PROTEIN TOTAL,TP 7.5 g/dl (6.4-8.2)
[2023-12-11] MEDS: Magnesium Sulfate/Water 2 GM in Premix Bag 1 BAG IV ONE (15:53)
[2023-12-11 15:54] LABS: CORONAVIRUS COVID-19 NAA NEGATIVE (NEGATIVE); INFLUENZA A NAA NEGATIVE (NEGATIVE); RESPIRATORY SYNCYTIAL VIR NAA NEGATIVE (NEGATIVE)
[2023-12-11 18:48] VITALS: BP 109/61; PULSE 69
== END 2023-12-11 18:18 | disposition home or self-care (01) ==
LOC: JD.ED 13:30
DX: E87.1 Hypo-osmolality and hyponatremia (principal); E83.42 Hypomagnesemia; I10 Essential (primary) hypertension; E78.00 Pure hypercholesterolemia, unspecified; K21.9 Gastro-esophageal reflux disease without esophagitis; Z79.899 Other long term (current) drug therapy; Z79.82 Long term (current) use of aspirin; Z86.16 Personal history of COVID-19; Z90.710 Acquired absence of both cervix and uterus
CPT/HCPCS: 0241U; 36415; 71045; 80053; 81001; 83690; 83735; 84484; 85025; 96361; 96365; 96366; 96375; 99285; J2405; J3475; J3490; J7030; 93010; 99284